=== PATIENT | male | born 1960 | race Caucasian/White ===

== ENCOUNTER → 2023-09-24 07:02 | Outpatient (REF) | payer BC, SELFPAY ==
[2023-09-24 08:34] LABS: Microalbumin, Random Urine 1.9 mg/dl (0.6-1.7); Microalbumin/creatinine Ratio 23.1 mg/g
[2023-09-24 08:42] LABS: ALT (SGPT) 23 U/L (0-50); AST (SGOT) 16 U/L (17-59); Albumin 4.1 g/dl (3.5-5.0); Alkaline Phosphatase 36 U/L (38-126); Blood Urea Nitrogen 17 mg/dl (9-20); Calcium 9.4 mg/dl (8.4-10.2); Carbon Dioxide 27 mmol/L (22-30); Chloride 101 mmol/L (98-107); Glucose 119 mg/dl (70-99); HDL Cholesterol 61 mg/dl; LDL Cholesterol, Calculated 58 mg/dl; Potassium 4.5 mmol/L (3.5-5.1); Sodium 138 mmol/L (135-145); Total Bilirubin 1.2 mg/dl (0.2-1.3); Total Cholesterol 129 mg/dl (50-199); Total Protein 6.6 g/dl (6.3-8.2); Triglyceride 50 mg/dl (10-149); Very Low Density Lipoprotein 10 mg/dl (0-30); eGFR > 60.00
== END ==
LOC: REG 07:02
PROVIDERS: ATTENDING PHYSICIAN Nurse Practitioner Family; FAMILY PHYSICIAN Family Medicine
DX: E11.9 Type 2 diabetes mellitus without complications (principal)
CPT/HCPCS: 36415; 80053; 80061; 82043; 82570; 83036

== ENCOUNTER → 2024-04-21 07:01 | Outpatient (REF) | payer BC, SELFPAY ==
[2024-04-21 09:24] LABS: ALT (SGPT) 26 U/L (0-50); AST (SGOT) 18 U/L (17-59); Albumin 4.5 g/dl (3.5-5.0); Alkaline Phosphatase 42 U/L (38-126); Blood Urea Nitrogen 22 mg/dl (9-20); Calcium 9.7 mg/dl (8.4-10.2); Carbon Dioxide 28 mmol/L (22-30); Chloride 103 mmol/L (98-107); Glucose 117 mg/dl (70-99); HDL Cholesterol 66 mg/dl; LDL Cholesterol, Calculated 63 mg/dl; Sodium 144 mmol/L (135-145); Total Bilirubin 1.1 mg/dl (0.2-1.3); Total Cholesterol 139 mg/dl (50-199); Total Protein 6.9 g/dl (6.3-8.2); Triglyceride 53 mg/dl (10-149); Very Low Density Lipoprotein 10 mg/dl (0-30); eGFR > 60.00
[2024-04-21 10:56] LABS: Glycohemoglobin (HgbA1c) 6.2 % (4.0-5.6)
== END ==
LOC: REG 07:01
PROVIDERS: ATTENDING PHYSICIAN Internal Medicine Endocrinology, Diabetes & Metabolism
DX: E11.9 Type 2 diabetes mellitus without complications (principal)
CPT/HCPCS: 36415; 80053; 80061; 83036

== ENCOUNTER → 2024-10-16 08:23 | Outpatient (REF) | payer BC, SELFPAY ==
[2024-10-16 10:47] LABS: Albumin 4.2 g/dl (3.5-5.0); Blood Urea Nitrogen 19 mg/dl (9-20); Carbon Dioxide 29 mmol/L (22-30); Total Bilirubin 1.3 mg/dl (0.2-1.3); Total Protein 6.6 g/dl (6.3-8.2); eGFR > 60.00
[2024-10-16 10:59] LABS: ALT (SGPT) 24 U/L (0-50); AST (SGOT) 24 U/L (17-59); Alkaline Phosphatase 44 U/L (38-126); Calcium 9.4 mg/dl (8.4-10.2); Chloride 104 mmol/L (98-107); Glucose 103 mg/dl (70-99); Potassium 4.6 mmol/L (3.5-5.1); Sodium 140 mmol/L (135-145)
[2024-10-16 11:02] LABS: Microalbumin, Random Urine 5.6 mg/dl (0.6-1.7); Microalbumin/creatinine Ratio 26.3 mg/g
[2024-10-16 11:51] LABS: Glycohemoglobin (HgbA1c) 6.3 % (4.0-5.6)
== END ==
LOC: REG 08:23
PROVIDERS: ATTENDING PHYSICIAN Internal Medicine Endocrinology, Diabetes & Metabolism; FAMILY PHYSICIAN Family Medicine
DX: E11.9 Type 2 diabetes mellitus without complications (principal)
CPT/HCPCS: 36415; 80053; 82043; 82570; 83036

== ENCOUNTER → 2025-04-20 07:09 | Outpatient (REF) | payer BC, SELFPAY ==
[2025-04-20 09:29] LABS: ALT (SGPT) 24 U/L (0-50); AST (SGOT) 17 U/L (17-59); Albumin 4.5 g/dl (3.5-5.0); Alkaline Phosphatase 36 U/L (38-126); Blood Urea Nitrogen 15 mg/dl (9-20); Calcium 9.5 mg/dl (8.4-10.2); Carbon Dioxide 28 mmol/L (22-30); Chloride 105 mmol/L (98-107); Glucose 117 mg/dl (70-99); Potassium 4.2 mmol/L (3.5-5.1); Sodium 140 mmol/L (135-145); Total Protein 7.0 g/dl (6.3-8.2); eGFR > 60.00
[2025-04-20 11:40] LABS: Glycohemoglobin (HgbA1c) 6.5 % (4.0-5.6)
== END ==
LOC: REG 07:09
PROVIDERS: ATTENDING PHYSICIAN Internal Medicine Endocrinology, Diabetes & Metabolism; FAMILY PHYSICIAN Family Medicine
DX: E11.9 Type 2 diabetes mellitus without complications (principal)
CPT/HCPCS: 36415; 80053; 82570; 83036; 84156

== ENCOUNTER 2025-07-30 17:26 | Inpatient (IN) | payer BC, MEDICARE, SELFPAY ==
[2025-07-30] VITALS (13 sets, daily range): BP systolic 81–102; BP diastolic 52–67; BMI 31.0; BMI 30.8
--- NOTE | 2025-07-30 15:54 | ED.GENMED ---
History of Present Illness
General
Chief Complaint: Abnormal Lab Value
Source: patient and physician
Exam Limitations: none
Time Seen by Provider: 07/30/25 15:41
Nursing documentation reviewed up to this point in time: agreed with
History of Present Illness
History of Present Illness:
65-year-old male with a past medical history of insulin-dependent diabetes, hypertension, prior history of kidney stones who presents to the emergency department sent in by his primary care physician after outpatient lab work showed significant
renal dysfunction. Patient reports that he has been sick for for 5 days with GI illness�he says he has had profuse nausea/vomiting/diarrhea and has had difficulty keeping fluids down. He says that nausea and vomiting has improved today although he
has continued to have diarrhea. He has not had significant abdominal pain with his symptoms. He has not noted a fever. He says that he was scheduled for lab work in anticipation of an upcoming doctor's appointment in August and so he went for
his lab work today and he received a call that his kidney function was significantly abnormal and prompted referral to the ER. Here he says he feels generally weak but otherwise well. He does report decreased urine output but says that he feels he
is emptying his bladder completely. Denies any known history of kidney disease.
Past History
Past History
ED Past Medical History: HTN, Hypercholesterolemia and NIDDM
ED Past Surgical History: Appendectomy
Social History
Tobacco: Non-smoker
Alcohol: Occasional
Personal:
Living: with family
Review of Systems
Review of Systems
All Other Systems: ROS reviewed and negative except as documented in HPI and ROS
Constitutional: Reports fatigue; Denies fever
Respiratory: Denies trouble breathing
Cardiac: Denies chest pain
ABD/GI: Reports nausea, vomiting and diarrhea; Denies abdominal pain
: Denies dysuria, flank pain or difficulty voiding
Musculoskeletal: Denies neck pain or back pain
Neurological: Denies headache
Phy Exam
Physical Exam
Physical Exam:
General: Awake, alert, oriented x3; no acute distress
Head: Normocephalic, atraumatic
Eyes: Conjunctiva normal, sclera anicteric
Throat: Airway intact, dry mucous membranes
Neck: Trachea midline, supple without meningismus
Lungs: Clear to auscultation bilaterally, no wheezing, rales, rhonchi
Heart: Regular rate and rhythm, no murmurs, gallops, or rubs
Abd: Soft, non distended, nontender
Neuro: Grossly intact
Skin: Warm and dry, poor turgor
Extremities: No edema in extremities, warm and well-perfused
Scores
Heart Failure Risk
Heart Failure Risk Score: Not Applicable
Heart Score for Chest Pain Patients
STEMI patient?: Not applicable
Withdrawal Assessment of Alcohol
Withdrawal Assessment Completed?: Not applicable
Course
Orders/Labs/Results
Orders:
Orders
07/30/25 15:43
Electrocardiogram (*1) Urgent
EKG- Treatment ONCE
Complete Blood Count/With Diff Urgent
Comprehensive Metabolic Panel Urgent
07/30/25 15:44
Bladder Scan- Treatment ONCE
Urinalysis Reflex To Culture Urgent
07/30/25 15:53
NEPHROLOGY CONSULT Urgent
Consulting Provider: Sukhjinder Kim
Was physician already notified: Yes
07/30/25 15:54
0.9% Sodium Chloride 1000 ml [Nss] 1,000 ml IV BOLUS
07/30/25 15:55
US Renal With Bladder Urgent
Comment:
Reason For Exam: renal failure
07/30/25 15:57
0.9% Sodium Chloride 1000 ml [Nss] 1,000 ml IV BOLUS
Vital Signs
Initial and Last Documented VS:
Initial Vital Signs
Temp Pulse Resp BP Pulse Ox
36.3 C 92 16 97/52 98
07/30/25 15:25 07/30/25 15:25 07/30/25 15:25 07/30/25 15:25 07/30/25 15:25
Last Documented Vital Signs
Temp Pulse Resp BP Pulse Ox
36.3 C 92 16 97/52 98
07/30/25 15:25 07/30/25 15:25 07/30/25 15:25 07/30/25 15:25 07/30/25 15:56
MDM/Problems Addressed
Differential Diagnosis Includes:
Renal failure: Prerenal (dehydration most likely clinically) versus ATN, interstitial nephritis, etc vs post renal/obstruction
MDM/Problems Addressed:
65-year-old male presents to the ER after outpatient labs showed renal failure in the setting of recent GI illness with profuse nausea/vomiting/diarrhea. GI symptoms generally improving. Vitals are as above�blood pressure is soft but his heart
rate is acceptable. Physical exam is as above�clinically appears hypovolemic. Bladder scan here showed no retained urine. Plan to place an IV, send repeat labs, urinalysis. Will check renal bladder ultrasound. Provide IV fluid resuscitation.
Case discussed with nephrology for consultation. Discussed case with hospitalist for admission.
Chronic conditions affecting care:
Hypertension, diabetes
*Radiology
Radiology exam reviewed: radiology read reviewed
*Pulse Oximetry
SaO2: 98
Oxygen Mode of Delivery: Room air
Patient hypoxic: no (98%)
*EKG
Interpreted by ED Provider?: Yes
Heart Rate: 88
Rate: normal
Rhythm: sinus and PVC's
Interval: long QT
QRS Pattern: wide non-specific
Ischemia: non-specific ST changes
*Critical Care Note
Total Time (30-74mins, 75-104mins- exclusive of procedures): Not Applicable
Data Reviewed
Review of Other/Old Records Reveals: Labs and Records
Source: patient, records and physician
Patient Management
Discussion with other providers: Hospitalist (Discussed with hospitalist) and Skin Specialist (Discussed with can cutter)
Escalation/DeEscalation of care consider admission/obs:
Admission indicated
ED Attending Note
-
Portions of this chart may have been created with voice recognition software.� Occasional wrong word or��sound alike� substitutions may have occurred due to the inherent limitations of voice recognition software.
Discharge Plan
Departure
Patient Disposition: Admit
Date of Disposition: 07/30/25
Time of Disposition: 15:57
Admit to doctor: Deshawn
Presentation/result/management discussed w/ accepting MD/DO: Hospitalist
Discharge Problem:
Acute renal failure, Acute dehydration
Prescriptions:
No Action
tamsulosin 0.4 MG capsule
0.4 mg PO DAILY Qty: 10 0RF
hydrocodone-acetaminophen 1 TABLET tablet
1 tab PO Q4HPRN PRN (Reason: Pain) Qty: 15 0RF
metformin 1,000 MG tablet
1,000 mg PO BID
lisinopril 40 MG tablet
40 mg PO DAILY
Glipizide
1 tab PO DAILY
Patient Comments:
unknown dosage
Interventions
Interventions:
*General Assessment Last Done: 07/30/25 15:25
*Neglect/Abuse Screening Last Done: 07/30/25 15:25
Discharge Date and Time
Print Language: AZERI
[2025-07-30] MEDS: NSS 1000 IV ×3 (15:55→21:55)
--- NOTE | 2025-07-30 16:08 | W.CON.NEPH ---
Consultation
-
Date/Time Consultation Requested: 07/30/2025 at 4:00 p.m.
Date/Time Consultation Performed: 07/30/2025 at 4:15 p.m.
Requesting Provider: Chris Cash
Performing Provider: Dr. Kim
Reason for Consultation: acute kidney injury
Medical History
-
Chief Complaint: acute kidney injury
History of Present Illness:
65-year-old male with a past medical history of insulin-dependent diabetes, hypertension, prior history of kidney stones who presents to the emergency department sent in by his primary care physician after outpatient lab work showed significant
renal dysfunction. Patient reports that he has been sick for for 5 days with GI illness including profuse nausea/vomiting/diarrhea
renal consultation for electrolyte abnormalities and acute kidney injury with a creatinine 4.1, bicarbonate 15, sodium 130
outpatient medication includes Farxiga, Mounjaro, lisinopril which he has been on for 4+ years.
Denies any NSAID use.
Past Medical History
past medical history of insulin-dependent diabetes, hypertension, prior history of kidney stones
Social History
Tobacco: Non-Smoker
Alcohol: None
Family History
Family History: Not Pertinent
Allergies / Home Medications
Allergy/AdvReac Type Severity Reaction Status Date / Time
Penicillins Allergy Swelling Verified 07/30/25 15:30
�Medication �Instructions �Recorded �Confirmed �Type
Glipizide 1 tab PO DAILY 01/06/15 01/06/15 History
hydrocodone 5 mg-acetaminophen 325 1 tab PO Q4HPRN PRN Pain #15 tabs 01/06/15 Rx
mg tablet
lisinopril 40 mg tablet 40 mg PO DAILY 01/06/15 01/06/15 History
metformin 1,000 mg tablet 1,000 mg PO BID 01/06/15 01/06/15 History
tamsulosin 0.4 mg capsule 0.4 mg PO DAILY #10 caps 01/06/15 Rx
Review of Systems
-
nausea vomiting diarrhea
All other systems: Negative unless noted
Physical Exam
Vital Signs
Vital Signs
Temp Pulse Resp BP Pulse Ox
97.3 F 86 16 99/59 97
07/30/25 15:25 07/30/25 15:46 07/30/25 15:46 07/30/25 15:46 07/30/25 16:00
Physical Exam
General no acute distress
HEENT no cephalic atraumatic extraocular muscle intact no scleral icterus no JVD neck supple
lungs clear to auscultation bilateral
heart regular S1-S2 positive
abdomen soft nontender positive bowel sounds
extremities no edema pulses present bilateral
Neurologically nonfocal alert and oriented x 3
Skin no lesions no abrasions no petechiae
Psych normal affect no bizarre behavior
Data Reviewed
-
Labs: Labs Reviewed by me, Discussed with Physician and Discussed with Patient
Assessment/Plan
-
65-year-old male with a past medical history of insulin-dependent diabetes, hypertension, prior history of kidney stones who presents to the emergency department sent in by his primary care physician after outpatient lab work showed significant
renal dysfunction. Patient reports that he has been sick for for 5 days with GI illness including profuse nausea/vomiting/diarrhea
renal consultation for electrolyte abnormalities and acute kidney injury with a creatinine 4.1, bicarbonate 15, sodium 130
Significant outpatient medication includes Farxiga, Mounjaro, lisinopril which he has been on for 4+ years.
Denies any NSAID use.
impression
acute kidney injury in the setting of hypotension hypovolemic shock
hyponatremia acute
acute gapped metabolic acidosis without secondary process
insulin-dependent diabetes
history of renal calculi
plan
agree with imaging
IV fluids resuscitation status post 1 L so far in the ER continue with a 2 L ordered. If no improvement with volume resuscitation will need pressor support and suggest continue IV fluids at 150 cc/hour after appropriate volume resuscitation
there is no indication for alkaline therapy at this time
cultures
discontinue lisinopril/ metformin/ Farxiga
[2025-07-30 16:09] LABS: Hematocrit 50.6 % (39.0-52.0); Hemoglobin 15.9 g/dL (13.0-18.0); Mean Corp Hgb Conc. 31.4 g/dL (33.0-37.0); Mean Corpuscular Volume 65.6 fL (80.0-94.0); Nucleated Red Blood Cells % 0 % (-); Platelet Count 207 10^3/uL (130-400); Red Cell Dist. Width 19.0 % (11.5-14.5)
[2025-07-30 16:32] LABS: ALT (SGPT) 18 U/L (0-50); AST (SGOT) 14 U/L (17-59); Albumin 4.5 g/dl (3.5-5.0); Alkaline Phosphatase 38 U/L (38-126); Blood Urea Nitrogen 72 mg/dl (9-20); Calcium 8.4 mg/dl (8.4-10.2); Carbon Dioxide 15 mmol/L (22-30); Chloride 97 mmol/L (98-107); Glucose 157 mg/dl (70-99); Potassium 5.0 mmol/L (3.5-5.1); Sodium 131 mmol/L (135-145); Total Protein 7.0 g/dl (6.3-8.2)
[2025-07-30 16:54] LABS: Estimated Creatinine Clearance 16 ml/min; eGFR 13.57
--- NOTE | 2025-07-30 17:50 | W.PN.UPDATE ---
Update Note
Progress Note Update
65-year-old male with liver cirrhosis, NIDDM, HTN, HLD, DESTINY s/p soft palate resection, beta thalassemia trait, asthma, nephrolithiasis, H/O bladder cancer presenting to the ED today with abnormal OP labs. Had outpatient labs ordered by his PCP
which showed significant renal dysfunction. Patient reports gastrointestinal illness over the last 5 days with profuse N/V/D, unable to hold fluids down at the time. Has since had improvement to his nausea though still with some diarrhea. Denies
abdomen pain, fever, dyspnea, chest pain. Was directed by his family doctor to come to the ED. Symptomatically with weakness and reduced urine output though denies symptoms of urine retention. Denies known kidney disease. AFVSS in the ED. Labs
with WBC 11.3, hemoglobin 16, MCV 65.2, sodium 130, chloride 96, bicarb 15, BUN 64, creatinine 4.1. Bladder scans performed in the ED without any signs of urine retention. Formal kidney bladder US ordered, results pending. Started on IVF in the
ED.
AAO x 4, NAD, well-nourished. Benign cardiopulmonary and abdominal exam. No edema, no JVD, palpable pulses. Skin warm and dry with poor turgor. No asterixis, no CN deficits or other FND
#Oliguric prerenal CARLYLE, NAGMA, hypovolemic hyponatremia. Likely due to presumed viral gastroenteritis with inability to tolerate oral fluids recently as well as home ACEi. Creatinine baseline 0.8, up to 4.1 with bicarb 15 on BMP. Sodium 130.
Examines hypovolemic. No indications for urgent [employer]. Hold home lisinopril. Start IV LR at 150 mL/h. Trend BMP and I/Os. MAP goal >65. Follow-up kidney bladder ultrasound. Avoid nephrotoxins strictly. Nephrology consulted
#Viral gastroenteritis. Low suspicion for bacterial etiology. Clinically improving at time of arrival. Possibly norovirus versus other nonspecific viral etiology. Will check flu/COVID/norovirus testing for completeness. As needed Imodium
#Well-controlled NIDDM. A1c 6.3%. Hold home metformin and glipizide. Start Accu-Cheks and moderate ISS. Blood glucose goal 140-180 while inpatient
#Primary hypertension. Home regimen includes lisinopril, likely contributing to CARLYLE. Blood pressure near 100 mmHg systolic on arrival. Hold antihypertensives. Monitor VS
Diet -- Low residue
DVT -- SQH
Code -- Full
I have personally evaluated the patient at the bedside in the ED. I will be admitting Jarvis Ram to telemetry. He is at high risk for worsening morbidity due to acute renal failure and require intensive monitoring of his renal function and
readjustment of his antihypertensive regimen. I have discussed this case with the ED attending and the production recorder. I have reviewed the case with the resident and agree with all documentation unless otherwise specified.
Please see formal resident H&P for more detail once available
--- NOTE | 2025-07-30 18:01 | HPS.HSE ---
Family Physician
-
Family Physician: Calvin Hernandez
Chief Complaint
-
Abnormal outpatient lab
History of Present Illness
65-year-old male with PMH of NIDDM , liver cirrhosis,, HTN, HLD, DESTINY s/p soft palate resection, beta thalassemia trait, asthma, nephrolithiasis, bladder cancer presenting to the ED today with abnormal outpatient labs that was done for his annual
physical ordered by his PCP then he had a call from his PCP office stating that he has abnormal kidney function test and he needed to go to the hospital. Patient reports gastrointestinal illness over the last 5 days with profuse N/V/D, unable to
hold fluids down at the time. Has since had improvement to his nausea though still with some diarrhea. Denies abdomen pain, fever, dyspnea, chest pain. . Symptomatically with weakness and reduced urine output though denies symptoms of urine
retention. Denies known kidney disease.
AFVSS in the ED. Labs with WBC 11.3, hemoglobin 16, MCV 65.2, sodium 130, chloride 96, bicarb 15, BUN 64, creatinine 4.1. Bladder scans performed in the ED without any signs of urine retention. Formal kidney bladder US ordered, results pending.
Started on IVF in the ED.
Medical History
Past Medical History
Past Medical History: Reports Cancer (Bladder), HTN, NIDDM and Other (liver cirrhosis, HTN, HLD, DESTINY s/p soft palate resection, beta thalassemia trait, asthma, nephrolithiasis.)
Past Surgical History: Reports Appendectomy
Social History
Tobacco: Non-smoker
Alcohol: Occasional
Drug: None
Personal:
Living: With Family
Employment: Employed
Family History
Family History: Not pertinent
Allergies / Home Medications
Allergies reflects when Allergies were last updated in [employer].
Allergies
Allergy/AdvReac Type Severity Reaction Status Date / Time
Penicillins Allergy Swelling Verified 07/30/25 15:30
Home Medications
Glipizide 1 tab PO DAILY 01/06/15
hydrocodone 5 mg-acetaminophen 325 mg tablet 1 tab PO Q4HPRN PRN Pain #15 tabs 01/06/15
lisinopril 40 mg tablet 40 mg PO DAILY 01/06/15
metformin 1,000 mg tablet 1,000 mg PO BID 01/06/15
tamsulosin 0.4 mg capsule 0.4 mg PO DAILY #10 caps 01/06/15
Home Medications with original date entered in [employer]
Allergy/Medication List:
Allergies
Allergy/AdvReac Type Severity Reaction Status Date / Time
Penicillins Allergy Swelling Verified 07/30/25 15:30
Home Medications
Glipizide 1 tab PO DAILY 01/06/15
hydrocodone 5 mg-acetaminophen 325 mg tablet 1 tab PO Q4HPRN PRN Pain #15 tabs 01/06/15
lisinopril 40 mg tablet 40 mg PO DAILY 01/06/15
metformin 1,000 mg tablet 1,000 mg PO BID 01/06/15
tamsulosin 0.4 mg capsule 0.4 mg PO DAILY #10 caps 01/06/15
Review of Systems
-
History Source: Patient
Respiratory: Reports No Symptoms
Cardiac: Reports No Symptoms
Abdomen/GI: Reports Nausea and Diarrhea
: Reports No Symptoms
Neurological: Reports No Symptoms
Physical Exam
Vital Signs
Vital Signs
Temp Pulse Resp BP Pulse Ox
97.3 F 83 16 93/56 96
07/30/25 15:25 07/30/25 17:30 07/30/25 17:30 07/30/25 17:00 07/30/25 17:30
Physical Exam
General: Well Developed, Well Nourished and No Apparent Distress
Respiratory: Clear
Cardiac: S1/S2 and Regular Rhythm
GI: Soft, Non Tender, Non Distended and Normal Bowel Sounds
Musculoskeletal: No Edema
Neuro: Awake, Alert, Oriented and AO x 3
Psych: Calm
Laboratory Results
-
07/30/25 15:54
07/30/25 15:54
Laboratory Results
Total Bilirubin 0.8 mg/dl (0.2-1.3) 07/30/25 15:54
AST 14 U/L (17-59) L 07/30/25 15:54
ALT 18 U/L (0-50) 07/30/25 15:54
Alkaline Phosphatase 38 U/L (38-126) 07/30/25 15:54
Impression/Plan
-
IMPRESSION:
65-year-old male with liver cirrhosis, NIDDM, HTN, HLD, DESTINY s/p soft palate resection, beta thalassemia trait, asthma, nephrolithiasis, H/O bladder cancer presenting to the ED today with abnormal OP labs. Had outpatient labs ordered by his PCP
which showed significant renal dysfunction. Patient reports gastrointestinal illness over the last 5 days with profuse N/V/D, unable to hold fluids down at the time. Has since had improvement to his nausea though still with some diarrhea. Denies
abdomen pain, fever, dyspnea, chest pain. Was directed by his family doctor to come to the ED. Symptomatically with weakness and reduced urine output though denies symptoms of urine retention. Denies known kidney disease. AFVSS in the ED. Labs
with WBC 11.3, hemoglobin 16, MCV 65.2, sodium 130, chloride 96, bicarb 15, BUN 64, creatinine 4.1. Bladder scans performed in the ED without any signs of urine retention. Formal kidney bladder US ordered, results pending. Started on IVF in the
ED.
AAO x 4, NAD, well-nourished. Benign cardiopulmonary and abdominal exam. No edema, no JVD, palpable pulses. Skin warm and dry with poor turgor. No asterixis, no CN deficits or other FND
PLAN:
# prerenal CARLYLE, oliguria
-likely related hypovolemia due to diarrhea and vomiting which is likely due to viral gastroenteritis
-IV fluids bolus
-hold lisinopril, tamsulosin
-check renal and bladder US
-check KFT
-check influenza, COVID, noro virus
-check urinalysis
-microalbumin urine
-Creatinine baseline 0.8, up to 4.1--5.5
-eGFR 46--72
#hyponatremia
likely related to hypovolemia
Na 130-131
IV fluid
check cmp
#NIDDM
Hold metformin , glipizide
start Insulin sliding scale
#Hypertension
hold lisinopril, tamsulosin
DVT prophylaxis
Code status -Full code
[2025-07-30 18:24] LABS: Magnesium 1.8 mg/dl (1.6-2.3)
[2025-07-30 18:39] LABS: Urine Character Clear (Clear)
[2025-07-30 18:46] LABS: Urine Squamous Cell 0-2 /LPF (Few)
[2025-07-30 18:47] LABS: Urine Red Blood Cell 0-2 /HPF (0-2); Urine White Cell 0-2 /HPF (0-5)
[2025-07-30 21:49] LABS: Glucose - Point of Care 127 mg/dl (70-99)
[2025-07-30] MEDS: HEPARIN 5000 UNITS SC (21:55)
--- NOTE | 2025-07-30 22:53 | PTCARENOTE ---
Recieved pt. from ED. Pt. ambulated from stretcher to bed. Pt. AAOx3, VSS, oriented to unit, and call baker placed within reach. Pt. care ongoing.
[2025-07-31] MEDS: NSS 1000 IV (05:46)
--- NOTE | 2025-07-31 07:10 | W.PN.HOSP.TC ---
Today's Communication/Plan
-
switched the NSS to sodium bicarb IV fluids
Assessment / Plan
Assessment / Plan
5-year-old male with liver cirrhosis, NIDDM, HTN, HLD, DESTINY s/p soft palate resection, beta thalassemia trait, asthma, nephrolithiasis, H/O bladder cancer presenting to the ED today with abnormal OP labs. Had outpatient labs ordered by his PCP which
showed significant renal dysfunction. Patient reports gastrointestinal illness over the last 5 days with profuse N/V/D, unable to hold fluids down at the time. Has since had improvement to his nausea though still with some diarrhea. Denies
abdomen pain, fever, dyspnea, chest pain. Was directed by his family doctor to come to the ED. Symptomatically with weakness and reduced urine output though denies symptoms of urine retention. Denies known kidney disease. AFVSS in the ED. Labs
with WBC 11.3, hemoglobin 16, MCV 65.2, sodium 130, chloride 96, bicarb 15, BUN 64, creatinine 4.1. Bladder scans performed in the ED without any signs of urine retention. Formal kidney bladder US ordered, results pending. Started on IVF in the
ED.
AAO x 4, NAD, well-nourished. Benign cardiopulmonary and abdominal exam. No edema, no JVD, palpable pulses. Skin warm and dry with poor turgor. No asterixis, no CN deficits or other FND
PLAN:
# prerenal CARLYLE, oliguria
-likely related hypovolemia due to diarrhea and vomiting which is likely due to viral gastroenteritis
-IV fluids bolus
-hold lisinopril, tamsulosin
-check renal and bladder US
-check KFT
-check influenza, COVID, noro virus
-check urinalysis
-microalbumin urine
-Creatinine baseline 0.8, up to 4.1--4.5--2.4
-eGFR 46--72--
#Viral gastroenteritis
improving
Low suspicion for bacterial etiology
norovirus neg , likely other nonspecific viral etiology
As needed Imodium
#hyponatremia
likely related to hypovolemia
Na 130-131--133
IV fluid
check cmp
#NIDDM
Hold metformin , glipizide
start Insulin sliding scale Blood glucose goal 140-180 while inpatient
#Hypertension
hold lisinopril,
#Hx of nephrolithiasis
hold tamsulosin due to low blood pr
DVT prophylaxis
Code status -Full code
Anticipated Discharge: 24 - 48 hours
Subjective/Interval History
-
Date of Service: July 31, 2025
No overnight events. He denied nausea, vomiting, diarrhea, denied abdominal pain. He has better urine output.
Objective Data
-
Labs:
Laboratory Results
07/31/25
06:00
WBC Pending
Hgb Pending
Hct Pending
Plt Count Pending
Sodium Pending
Potassium Pending
Chloride Pending
Carbon Dioxide Pending
BUN Pending
Creatinine Pending
Glucose Pending
Calcium Pending
Total Bilirubin Pending
AST Pending
ALT Pending
Alkaline Phosphatase Pending
Vital Signs:
Vital Signs
Temp Pulse Resp BP Pulse Ox
98.7 F 76 14 99/57 100
07/30/25 23:49 07/30/25 23:49 07/30/25 23:49 07/30/25 23:49 07/30/25 23:49
I&O
07/30/25 07/31/25 08/01/25
06:59 06:59 06:59
Intake Total 1200 / 1200
Balance 1200 / 1200
Review of Systems
-
History Source: Patient
Constitutional: Reports No Symptoms
Respiratory: Reports No Symptoms
Cardiac: Reports No Symptoms
Abdomen/GI: Reports No Symptoms
Genitourinary: Reports No Symptoms
Physical Exam
-
General: Well Developed, Well Nourished and No Apparent Distress
HEENT: Normocephalic, Atraumatic and Moist Mucous Membranes
Respiratory: Clear to Auscultation
Cardiac: Regular Rhythm and S1/S2
GI: Soft, Nontender and Nondistended
Genito-urinary: Clear Urine
Musculoskeletal: No Edema
Skin: Warm and Dry
Neuro: Awake, Alert, Oriented and AO x 3
Psych: Calm
[2025-07-31 07:45] VITALS: BP 109/61
[2025-07-31] MEDS: HEPARIN 5000 UNITS SC ×2 (07:49→21:45)
[2025-07-31 07:59] LABS: Glucose - Point of Care 101 mg/dl (70-99)
[2025-07-31] MEDS: NOVOLOG FLEXPEN-LOW RESISTANCE SC ×3 (08:02→16:02)
[2025-07-31 08:42] LABS: Hematocrit 40.9 % (39.0-52.0); Hemoglobin 13.3 g/dL (13.0-18.0); Mean Corp Hgb Conc. 32.5 g/dL (33.0-37.0); Mean Corpuscular Volume 64.1 fL (80.0-94.0); Nucleated Red Blood Cells % 0 % (-); Platelet Count 144 10^3/uL (130-400); Red Cell Dist. Width 18.3 % (11.5-14.5)
[2025-07-31 09:12] LABS: COVID-19 Antigen Negative (Negative)
[2025-07-31 09:40] LABS: ALT (SGPT) 15 U/L (0-50); AST (SGOT) 12 U/L (17-59); Albumin 3.3 g/dl (3.5-5.0); Alkaline Phosphatase 34 U/L (38-126); Blood Urea Nitrogen 64 mg/dl (9-20); Calcium 7.6 mg/dl (8.4-10.2); Carbon Dioxide 14 mmol/L (22-30); Chloride 110 mmol/L (98-107); Estimated Creatinine Clearance 30 ml/min; Glucose 94 mg/dl (70-99); Magnesium 1.9 mg/dl (1.6-2.3); Potassium 3.7 mmol/L (3.5-5.1); Sodium 133 mmol/L (135-145); Total Protein 5.6 g/dl (6.3-8.2); eGFR 28.85
[2025-07-31] MEDS: SODIUM BICARBONATE 1150 MEQ IV ×2 (11:21→22:10)
[2025-07-31 11:28] LABS: Glucose - Point of Care 128 mg/dl (70-99)
--- NOTE | 2025-07-31 14:17 | W.PN.NEPH.PH ---
Today's Communication / Plan
-
cont IVF and follow labs
start po gordon and check vit D
Assessment/Plan
-
65-year-old male with a past medical history of insulin-dependent diabetes, hypertension, prior history of kidney stones who presents to the emergency department sent in by his primary care physician after outpatient lab work showed significant
renal dysfunction. Patient reports that he has been sick for for 5 days with GI illness including profuse nausea/vomiting/diarrhea
renal consultation for electrolyte abnormalities and acute kidney injury with a creatinine 4.1, bicarbonate 15, sodium 130
Significant outpatient medication includes Farxiga, Mounjaro, lisinopril which he has been on for 4+ years.
Denies any NSAID use.
impression
acute kidney injury in the setting of hypotension hypovolemic shock
hyponatremia acute
acute gapped metabolic acidosis without secondary process
insulin-dependent diabetes
history of renal calculi
plan
CARLYLE-prerenal from diarrhea
cr improving to 2.4, bland UA with 2+alb
renal US non acute and seem he is subjectively non oliguric
given worsening met acidosis agree changing IVF to bicarb
improving hypovolemic hyponatremia
cont to hold lisinopril/ metformin/ Farxiga
Bp improving now
mild hypocalcemia-add po calcium , check vit D
d/w pt, cont supportive care
-
-
Date of Service: July 31, 2025
CC / HPI / ROS
-
Chief Complaint:
CARLYLE, met acidosis
History of Present Illness:
cr better at 2.4, bicarb worse at 14
bp improving trend but remaisn soft
no fever
sodium better at 133
Review of Systems:
no cp or sob
still with diarrhea
no abd pain or n/v
Labs
-
Labs:
WBC 6.2 10^3/uL (4.8-10.8) 07/31/25 07:46
RBC 6.38 10^6/uL (4.70-6.10) H 07/31/25 07:46
Hgb 13.3 g/dL (13.0-18.0) 07/31/25 07:46
Hct 40.9 % (39.0-52.0) 07/31/25 07:46
Plt Count 144 10^3/uL (130-400) D 07/31/25 07:46
Sodium 133 mmol/L (135-145) L 07/31/25 07:46
Potassium 3.7 mmol/L (3.5-5.1) D 07/31/25 07:46
Chloride 110 mmol/L (98-107) H 07/31/25 07:46
Carbon Dioxide 14 mmol/L (22-30) L* 07/31/25 07:46
BUN 64 mg/dl (9-20) H 07/31/25 07:46
Creatinine 2.4 mg/dL (0.7-1.3) H 07/31/25 07:46
eGFR 28.85 07/31/25 07:46
Glucose 94 mg/dl (70-99) 07/31/25 07:46
Calcium 7.6 mg/dl (8.4-10.2) L 07/31/25 07:46
Albumin 3.3 g/dl (3.5-5.0) L 07/31/25 07:46
Physical Exam
-
Vital Signs:
Vital Signs
Temp Pulse Resp BP Pulse Ox
98.4 F 76 16 109/61 97
07/31/25 07:45 07/31/25 07:45 07/31/25 07:45 07/31/25 07:45 07/31/25 07:45
Cardiovascular:: Regular rate and rhythm
Respiratory:: Bilateral: CTA
Lung Excursion:: Normal
Abdomen:: Nontender and Soft
Extremity Edema:: None: Bilateral:
Guzman Catheter: No
[2025-07-31 15:15] VITALS: BP 113/73
--- NOTE | 2025-07-31 15:36 | CM ---
CM reviewed chart, patient seen bedside, initial assessment completed.
65-year-old male with PMH of NIDDM , liver cirrhosis,, HTN, HLD, DESTINY s/p soft palate resection, beta thalassemia trait, asthma, nephrolithiasis, bladder cancer presenting to the ED today with abnormal outpatient labs that was done for his annual
physical ordered by his PCP then he had a call from his PCP office stating that he has abnormal kidney function test and he needed to go to the hospital.
Patient resides with his and father in a three level home, two steps to enter.
Patient is independent with ADLs/IADLs, works here in [employer].
Patient denies VN/SNF.
PCP Calvin Hernandez, [facility], confirms prescription coverage.
Patient confirms transport home when stable.
Plan; home no needs likely
[2025-07-31 16:00] LABS: Glucose - Point of Care 149 mg/dl (70-99)
[2025-07-31 21:29] LABS: Glucose - Point of Care 186 mg/dl (70-99)
[2025-07-31] MEDS: OSCAL CAL 500 500 MG PO (21:44)
[2025-07-31 23:56] VITALS: BP 120/70
--- NOTE | 2025-08-01 07:00 | W.PN.HOSP.TC ---
Today's Communication/Plan
-
Discharged today (creatinine level 4 decreased to 1.1) started on Calcium and vitamin D tablets at discharge due to hypocalcemia and low Vit. D
hold lisinopril until he sees his PCP.
BMP in 5 days.
Assessment / Plan
Assessment / Plan
5-year-old male with liver cirrhosis, NIDDM, HTN, HLD, DESTINY s/p soft palate resection, beta thalassemia trait, asthma, nephrolithiasis, H/O bladder cancer presenting to the ED today with abnormal OP labs. Had outpatient labs ordered by his PCP which
showed significant renal dysfunction. Patient reports gastrointestinal illness over the last 5 days with profuse N/V/D, unable to hold fluids down at the time. Has since had improvement to his nausea though still with some diarrhea. Denies
abdomen pain, fever, dyspnea, chest pain. Was directed by his family doctor to come to the ED. Symptomatically with weakness and reduced urine output though denies symptoms of urine retention. Denies known kidney disease. AFVSS in the ED. Labs
with WBC 11.3, hemoglobin 16, MCV 65.2, sodium 130, chloride 96, bicarb 15, BUN 64, creatinine 4.1. Bladder scans performed in the ED without any signs of urine retention. Formal kidney bladder US ordered, results pending. Started on IVF in the
ED.
AAO x 4, NAD, well-nourished. Benign cardiopulmonary and abdominal exam. No edema, no JVD, palpable pulses. Skin warm and dry with poor turgor. No asterixis, no CN deficits or other FND
PLAN:
# prerenal CARLYLE, oliguria
-likely related hypovolemia due to diarrhea and vomiting which is likely due to viral gastroenteritis
-IV fluids bolus
-hold lisinopril, tamsulosin
-check renal and bladder US
-check KFT
-check influenza, COVID, noro virus
-check urinalysis
-microalbumin urine
-Creatinine baseline 0.8, up to 4.1--4.5--2.4--1.0
-eGFR 46--72--more than 60
#Hypocalcemia
Ca 8.3
likely related to low vitamin D
Calcium supplements with Vitamin D added to be taken at discharge
#Viral gastroenteritis
improving
Low suspicion for bacterial etiology
norovirus neg , likely other nonspecific viral etiology
As needed Imodium
#hyponatremia
likely related to hypovolemia
Na 130-131--133
IV fluid
check cmp
#NIDDM
Hold metformin , glipizide
start Insulin sliding scale Blood glucose goal 140-180 while inpatient
#Hypertension
hold lisinopril,
#Hx of nephrolithiasis
hold tamsulosin due to low blood pr
DVT prophylaxis
Code status -Full code
Anticipated Discharge: Today
Subjective/Interval History
-
Date of Service: August 01, 2025
No overnight events. He is feeling well today. Denied nausea , vomiting, abd pain or diarrhea
Objective Data
-
Labs:
Laboratory Results
08/01/25
06:00
WBC Pending
Hgb Pending
Hct Pending
Plt Count Pending
Sodium Pending
Potassium Pending
Chloride Pending
Carbon Dioxide Pending
BUN Pending
Creatinine Pending
Glucose Pending
Calcium Pending
Total Bilirubin Pending
AST Pending
ALT Pending
Alkaline Phosphatase Pending
Vital Signs:
Vital Signs
Temp Pulse Resp BP Pulse Ox
98.7 F 78 18 120/70 96
07/31/25 23:56 07/31/25 23:56 07/31/25 23:56 07/31/25 23:56 07/31/25 23:56
I&O
07/31/25 08/01/25 08/02/25
06:59 06:59 06:59
Intake Total 1200 / 1200 1201 / 1201
Balance 1200 / 1200 1201 / 1201
Review of Systems
-
History Source: Patient
Constitutional: Reports No Symptoms
Respiratory: Reports No Symptoms
Cardiac: Reports No Symptoms
Abdomen/GI: Reports No Symptoms
Genitourinary: Reports No Symptoms
Physical Exam
-
General: Well Developed, Well Nourished and No Apparent Distress
HEENT: Normocephalic, Atraumatic and Moist Mucous Membranes
Respiratory: Clear to Auscultation
Cardiac: Regular Rhythm and S1/S2
GI: Soft, Nontender and Nondistended
Genito-urinary: Clear Urine
Musculoskeletal: No Edema
Skin: Warm and Dry
Neuro: Awake, Alert, Oriented and AO x 3
Psych: Calm
[2025-08-01 07:15] VITALS: BP 133/84
[2025-08-01] MEDS: HEPARIN 5000 UNITS SC (07:20)
[2025-08-01] MEDS: OSCAL CAL 500 500 MG PO (07:20)
[2025-08-01 07:28] LABS: Glucose - Point of Care 114 mg/dl (70-99)
[2025-08-01] MEDS: NOVOLOG FLEXPEN-LOW RESISTANCE SC (07:28)
[2025-08-01 07:56] LABS: Hematocrit 39.7 % (39.0-52.0); Hemoglobin 13.0 g/dL (13.0-18.0); Mean Corp Hgb Conc. 32.7 g/dL (33.0-37.0); Mean Corpuscular Volume 64.9 fL (80.0-94.0); Platelet Count 95 10^3/uL (130-400); Red Cell Dist. Width 17.5 % (11.5-14.5)
[2025-08-01 08:16] LABS: ALT (SGPT) 14 U/L (0-50); AST (SGOT) 11 U/L (17-59); Albumin 3.3 g/dl (3.5-5.0); Alkaline Phosphatase 37 U/L (38-126); Blood Urea Nitrogen 28 mg/dl (9-20); Calcium 8.3 mg/dl (8.4-10.2); Carbon Dioxide 30 mmol/L (22-30); Chloride 106 mmol/L (98-107); Estimated Creatinine Clearance 71 ml/min; Glucose 109 mg/dl (70-99); Potassium 3.6 mmol/L (3.5-5.1); Sodium 139 mmol/L (135-145); Total Protein 5.8 g/dl (6.3-8.2); eGFR > 60.00
[2025-08-01] MEDS: SODIUM BICARBONATE 1150 MEQ IV (08:17)
[2025-08-01 08:33] LABS: Vitamin D, 25-OH*** 25.0 ng/mL (30-80)
[2025-08-01 11:40] LABS: Glucose - Point of Care 172 mg/dl (70-99)
[2025-08-01] MEDS: NOVOLOG FLEXPEN-LOW RESISTANCE 1 UNITS SC (11:41)
--- NOTE | 2025-08-01 13:36 | W.PN.NEPH.PH ---
Today's Communication / Plan
-
Discontinued creatinine clearance
Okay to discharge from renal standpoint
Will sign off
Assessment/Plan
-
65-year-old male with a past medical history of insulin-dependent diabetes, hypertension, prior history of kidney stones who presents to the emergency department sent in by his primary care physician after outpatient lab work showed significant
renal dysfunction. Patient reports that he has been sick for for 5 days with GI illness including profuse nausea/vomiting/diarrhea
renal consultation for electrolyte abnormalities and acute kidney injury with a creatinine 4.1, bicarbonate 15, sodium 130
Significant outpatient medication includes Farxiga, Mounjaro, lisinopril which he has been on for 4+ years.
Denies any NSAID use.
impression
acute kidney injury in the setting of hypotension hypovolemic shock
hyponatremia acute
acute gapped metabolic acidosis without secondary process
insulin-dependent diabetes
history of renal calculi
plan
CARLYLE-prerenal from diarrhea
Creatinine normalized
Bicarbonate resolved
No indication for 24-hour creatinine clearance
From renal standpoint okay for discharge no follow-up needed
-
-
Date of Service: August 01, 2025
CC / HPI / ROS
-
Chief Complaint:
CARLYLE, met acidosis
History of Present Illness:
Renal function normalized
no fever
sodium better at 133
Review of Systems:
no cp or sob
Labs
-
Labs:
WBC 4.3 10^3/uL (4.8-10.8) L 08/01/25 07:30
RBC 6.12 10^6/uL (4.70-6.10) H 08/01/25 07:30
Hgb 13.0 g/dL (13.0-18.0) 08/01/25 07:30
Hct 39.7 % (39.0-52.0) 08/01/25 07:30
Plt Count 95 10^3/uL (130-400) L D 08/01/25 07:30
Sodium 139 mmol/L (135-145) 08/01/25 07:30
Potassium 3.6 mmol/L (3.5-5.1) 08/01/25 07:30
Chloride 106 mmol/L (98-107) 08/01/25 07:30
Carbon Dioxide 30 mmol/L (22-30) 08/01/25 07:30
BUN 28 mg/dl (9-20) H 08/01/25 07:30
Creatinine 1.0 mg/dL (0.7-1.3) 08/01/25 07:30
eGFR > 60.00 08/01/25 07:30
Glucose 109 mg/dl (70-99) H 08/01/25 07:30
Calcium 8.3 mg/dl (8.4-10.2) L 08/01/25 07:30
Albumin 3.3 g/dl (3.5-5.0) L 08/01/25 07:30
Physical Exam
-
Vital Signs:
Vital Signs
Temp Pulse Resp BP Pulse Ox
98 F 76 16 133/84 96
08/01/25 07:15 08/01/25 07:15 08/01/25 07:15 08/01/25 07:15 08/01/25 07:15
Cardiovascular:: Regular rate and rhythm
Respiratory:: Bilateral: CTA
Lung Excursion:: Normal
Abdomen:: Nontender and Soft
Extremity Edema:: None: Bilateral:
Guzman Catheter: No
[2025-08-01 14:14] VITALS: BP 140/81
--- NOTE | 2025-08-01 14:55 | CM ---
Pt cleared for discharge to home today; Pt has insurance; no IMM issued. Family will provide transport home.
--- NOTE | 2025-08-02 21:08 | W.DCSUMMARY ---
Documented by User: Segundo Meza MD, Resident 08/02/25 22:30
Discharge Summary
Discharge Data
Date of Admission: 07/30/25
Date of Discharge: 08/02/25
-
Pending Results: No
Hospital Course
Discharging physician:
Black Mercado
Segundo Meza
Disposition:
Home
Primary Care Physician:
Calvin Hernandez
Principal Discharge Diagnosis:
Acute dehydration
Acute Kidney Injury
Low calcium
Low vitamin D 25-hydroxy
Hyponatremia
Hypotension
Chronic Discharge Diagnosis:
NIDDM ,liver cirrhosis, HTN, HLD, DESTINY s/p soft palate resection, beta thalassemia trait, asthma, nephrolithiasis, and bladder cancer.
Hospital Course:
65-year-old male presented to the ED with abnormal outpatient labs that was done for his annual physical ordered by his PCP then he had a call from his PCP office stating that he has abnormal kidney function test and he needed to go to the
hospital. He reports gastrointestinal illness over the last 5 days with profuse N/V/D, unable to hold fluids down at that time. Has since had improvement to his nausea though still with some diarrhea. Reported weakness and reduced urine.
At ED, AFVSS, COVID, noro virus negative. Labs with WBC 11.3, hemoglobin 16, MCV 65.2, cr. clearance 16, sodium 130, chloride 96, bicarb 15, BUN 64, creatinine 4.1-->4.5, likely CARLYLE due to prerenal cause of hypovolemia. Nephrology consulted and
Bladder scans performed in the ED without any signs of urine retention. kidney bladder US ordered evidence for hydronephrosis. Started on 3 liters bolus IVF in the ED, His home metformin and glipizide had been held and started on sliding scale
insulin. His home lisinopril had been held as well. Creatinine clearance at admission to discharge day . His urine out has been improved. During hospitalization he developed acidosis with low Bicarb and he switched from IV NSS to sodium
bicarb IV fluid and his bicarb improved.
Resumed metformin and glipizide at discharge and continue hold lisinopril until he sees his PCP
During hospitalization he had hypocalcemia, Ca 8.3 likely related to low vitamin D, Calcium supplements with Vitamin D added to be taken at discharge.
He had hyponatremia likely related to hypovolemia , improved with IV fluids
His creatinine has normalized and was able to tolerate food intake , and his N/V/D have improved. He discharged in stable condition and to follow u with his PCP
Discharge Plan
-
Patient Disposition: Home (Routine Discharge)
Discharge Diagnosis/Procedures: Acute dehydration
Acute Kidney Injury
Low calcium
Low vitamin D 25-hydroxy
Hyponatremia
Hypotension
Condition: Good
Diet: Low Cholesterol, 2 Gram Sodium and Diabetic, Carb Controlled
Activity: No restrictions
Driving Restrictions: As prior to admission
Bathing Restrictions: OK to Shower
Blood Work: please do BMP blood test in 5 days
Instructions: Dehydration and hypovolemia in adults
Stand Alone Forms: Return to Work
Referrals:
Calvin Hernandez, DO [Family Provider, Family Practice] - in less than 1 week
Additional Discharge Medication Instructions: Take calcium 500mg as calcium carbonate (1250 mg) tablet twice daily
Take cholecalciferol (vit D3) 50 mcg (2000 unit) capsule daily
Hold taking Lisinopril 40 mf tablet until you see your PCP , please follow up with your PCP in less than a week.
Please do BMP blood test in 5 days
Prescriptions:
New
calcium carbonate 500 mg calcium (1,250 mg) Tablet
500 mg PO BID 30 Days Qty: 60 0RF
cholecalciferol (vitamin D3) [Vitamin D3] 50 mcg (2,000 unit) capsule
50 mcg PO DAILY 30 Days Qty: 30 0RF
Continued
hydrocodone-acetaminophen 1 TABLET tablet
1 tab PO Q4HPRN PRN (Reason: Pain) Qty: 15 0RF
tamsulosin 0.4 MG capsule
0.4 mg PO DAILY Qty: 10 0RF
metformin 1,000 MG tablet
1,000 mg PO BID Qty: 0 0RF
Glipizide
1 tab PO DAILY Qty: 0 0RF
Patient Comments:
unknown dosage
Held
lisinopril 40 MG tablet
40 mg PO DAILY
Hold Instructions: Please hold taking Lisinopril until you see your PCP in less than a week.
Discharge Orders:
Discharge Patient (As Directed); Ordered 08/01/25
Ordered By: Segundo Meza
Discharge Date and Time
Discharge Date/Time: 08/01/25 14:40
Print Language: CAMBODIAN

Documented by User: Black Mercado DO 08/03/25 10:53
Discharge Summary
Discharge Data
Date of Admission: 07/30/25
Date of Discharge: 08/01/25
Total time spent discharging patient (in min): 34
Discharge Plan
-
Patient Disposition: Home (Routine Discharge)
Discharge Diagnosis/Procedures: Acute dehydration
Acute Kidney Injury
Low calcium
Low vitamin D 25-hydroxy
Hyponatremia
Hypotension
Condition: Good
Diet: Low Cholesterol, 2 Gram Sodium and Diabetic, Carb Controlled
Activity: No restrictions
Driving Restrictions: As prior to admission
Bathing Restrictions: OK to Shower
Blood Work: please do BMP blood test in 5 days
Instructions: Dehydration and hypovolemia in adults
Stand Alone Forms: Return to Work
Referrals:
Calvin Hernandez, DO [Family Provider, Family Practice] - in less than 1 week
Additional Discharge Medication Instructions: Take calcium 500mg as calcium carbonate (1250 mg) tablet twice daily
Take cholecalciferol (vit D3) 50 mcg (2000 unit) capsule daily
Hold taking Lisinopril 40 mf tablet until you see your PCP , please follow up with your PCP in less than a week.
Please do BMP blood test in 5 days
Prescriptions:
New
calcium carbonate 500 mg calcium (1,250 mg) Tablet
500 mg PO BID 30 Days Qty: 60 0RF
cholecalciferol (vitamin D3) [Vitamin D3] 50 mcg (2,000 unit) capsule
50 mcg PO DAILY 30 Days Qty: 30 0RF
Continued
hydrocodone-acetaminophen 1 TABLET tablet
1 tab PO Q4HPRN PRN (Reason: Pain) Qty: 15 0RF
tamsulosin 0.4 MG capsule
0.4 mg PO DAILY Qty: 10 0RF
metformin 1,000 MG tablet
1,000 mg PO BID Qty: 0 0RF
Glipizide
1 tab PO DAILY Qty: 0 0RF
Patient Comments:
unknown dosage
Held
lisinopril 40 MG tablet
40 mg PO DAILY
Hold Instructions: Please hold taking Lisinopril until you see your PCP in less than a week.
Discharge Orders:
Discharge Patient (As Directed); Ordered 08/01/25
Ordered By: Segundo Meza
Discharge Date and Time
Discharge Date/Time: 08/01/25 14:40
Print Language: CAMBODIAN
== END 2025-08-01 14:40 | disposition home or self-care (01) | DRG 683 ==
LOC: 4 WEST ACU 17:26
PROVIDERS: Emergency Medicine; Internal Medicine; Specialist Research Data Abstracter/Coder; ADMITTING PHYSICIAN Internal Medicine; CONSULT PHYSICIAN Internal Medicine Nephrology; EMERGENCY PHYSICIAN Emergency Medicine; FAMILY PHYSICIAN Family Medicine
DX: N17.9 Acute kidney failure, unspecified (principal); E87.1 Hypo-osmolality and hyponatremia; E87.20 Acidosis, unspecified; E11.9 Type 2 diabetes mellitus without complications; I10 Essential (primary) hypertension; E78.00 Pure hypercholesterolemia, unspecified; E86.0 Dehydration; E86.1 Hypovolemia; K74.60 Unspecified cirrhosis of liver; G47.33 Obstructive sleep apnea (adult) (pediatric); E83.51 Hypocalcemia; A08.4 Viral intestinal infection, unspecified; D56.3 Thalassemia minor; J45.909 Unspecified asthma, uncomplicated; Z87.442 Personal history of urinary calculi; Z79.84 Long term (current) use of oral hypoglycemic drugs; Z79.899 Other long term (current) drug therapy; Z88.0 Allergy status to penicillin; Z85.51 Personal history of malignant neoplasm of bladder; Z90.49 Acquired absence of other specified parts of digestive tract
CPT/HCPCS: 36415; 51798; 76770; 80053; 80061; 81003; 81015; 82043; 82306; 82570; 82962; 83036; 83735; 84443; 85025; 85027; 87086; 87798; 87811; 93005; 96360; 96361; 99285